=== PATIENT | male | born 1945 | race Two or more races ===

== ENCOUNTER 2019-10-31 18:48 | Inpatient (IN) | payer OTHER ==
[~2019-10-31] VITALS: Ht 172.7 cm; Wt 75.4 kg
[~2019-10-31 18:48] MED LIST: HYDRALAZINE 20MG/ML VIAL IV PRN
[2019-10-31] MEDS ORDERED: ONDANSETRON HCL 4MG/2ML INJ IV STA (19:09)
[2019-10-31] MEDS ORDERED: IPRATROPIUM BROMIDE (0.02%) 0.5MG/2.5ML NEB HHN STA (19:09)
[2019-10-31 19:29] LABS: BASOPHILS % 0.6 % (0.0-2.0); EOSINOPHILS % 3.1 % (0.0-5.0); HEMATOCRIT. 44.2 % (42.0-52.0); HEMOGLOBIN. 14.6 g/dL (14.0-18.0); LYMPHOCYTES % 21.8 % (20.0-50.0); MEAN CORPUSCULAR HEMOGLOBIN 30.7 pg (28.0-32.0); MEAN CORPUSCULAR VOLUME 93.2 fL (80.0-94.0); MEAN PLATELET VOLUME 9.7 fl (7.4-10.4); MONOCYTES % 4.4 % (2.0-8.0); NEUTROPHILS % 70.1 % (40.0-76.0); PLATELET 272 x1000/uL (130-400); RED BLOOD CELL COUNT 4.74 mill/uL (4.7-6.1); RED CELL DISTRIBUTION WIDTH 14.4 % (11.6-14.6)
[2019-10-31 19:35] LABS: CHLORIDE 106 mEq/L (98-107)
[2019-10-31 19:36] LABS: INR 0.9
[2019-10-31 19:45] LABS: ETHANOL BLOOD < 10 mg/dL
[2019-10-31] MEDS ORDERED: LEVOFLOXACIN 750MG PREMIX 150 ML IV ONE (19:45)
[2019-10-31] MEDS ORDERED: SODIUM CHLORIDE 0.9% 1000ML BAG (SEPSIS BOLUS) IV ONE (19:45)
[2019-10-31] MEDS ORDERED: HYDRALAZINE 20MG/ML VIAL IV ONE (19:45)
[2019-10-31 20:56] LABS: CLARITY URINE CLEAR (CLEAR); COLOR URINE YELLOW (YELLOW); KETONES URINE NEGATIVE (NEGATIVE); LEUKOCYTE ESTERASE URINE NEGATIVE (NEGATIVE); NITRITE URINE NEGATIVE (NEGATIVE); OCCULT BLOOD URINE NEGATIVE (NEGATIVE); PROTEIN URINE 3+ (NEGATIVE); SPECIFIC GRAVITY URINE 1.012 (1.005-1.030); UROBILINOGEN URINE 0.2 E.U./dL (0.2-1.0)
[2019-10-31 21:21] LABS: *AMPHETAMINES SCREEN URINE NEGATIVE (NEGATIVE); *BARBITURATES SCREEN URINE NEGATIVE (NEGATIVE); *BENZODIAZEPINES SCREEN URINE NEGATIVE (NEGATIVE); *COCAINE SCREEN URINE NEGATIVE (NEGATIVE); CANNABINOID URINE SCREEN NEGATIVE (NEGATIVE); METHADONE URINE SCREEN NEGATIVE (NEGATIVE); OPIATES URINE SCREEN NEGATIVE (NEGATIVE); PHENCYCLIDINE URINE SCREEN NEGATIVE (NEGATIVE)
[2019-10-31] MEDS ORDERED: HYDRALAZINE 20MG/ML VIAL IV NR (22:00)
[2019-10-31 22:34] LABS: BG BASE EXCESS -1.1 mmol/L (-2.0-2.0); BG BILEVEL POS AIRWAY PRESSURE 14/5; BG CARBOXYHEMOGLOBIN 1.2 % (0.5-1.5); BG FRACTION INSPIRED OXYGEN 50; BG HCO3 ACT 25.1 mmol/L (22.0-26.0); BG METHEMOGLOBIN 0.1 % (0.0-1.5); BG OXYHEMOGLOBIN 96.7 % (94.0-97.0); BG PCO2 47.4 mmHg (35.0-45.0); BG PH 7.341 (7.350-7.450); BG PO2 123.2 mmHg (75.0-100.0); BG SAMPLE SITE RIGHT RADIAL; BG TOTAL HEMOGLOBIN 14.5 g/dL (12.0-18.0); BG VENT MODE MASK - BIPAP; BG VENT RATE 16 set
[2019-10-31 23:30] VITALS: BP 145/77
[2019-11-01] VITALS (12 sets, daily range): BP systolic 116–176; BP diastolic 58–95
[2019-11-01] MEDS ORDERED: HYDROCODONE/ACETAMINOPHEN 5/325MG TABLET PO PRN (01:15)
[2019-11-01] MEDS ORDERED: ACETAMINOPHEN 325MG TABLET PO PRN (01:15)
[2019-11-01] MEDS ORDERED: DEXTROSE 50% WATER 50ML SYRINGE IV PRN (01:45)
[2019-11-01 03:11] LABS: BASOPHILS % 0.2 % (0.0-2.0); EOSINOPHILS % 0.3 % (0.0-5.0); HEMATOCRIT. 38.5 % (42.0-52.0); LYMPHOCYTES % 11.8 % (20.0-50.0); MEAN CORPUSCULAR VOLUME 91.5 fL (80.0-94.0); MEAN PLATELET VOLUME 9.2 fl (7.4-10.4); MONOCYTES % 5.3 % (2.0-8.0); NEUTROPHILS % 82.4 % (40.0-76.0); PLATELET 181 x1000/uL (130-400)
[2019-11-01 03:30] LABS: T4 FREE 0.96 ng/dL (0.76-1.46)
[2019-11-01] MEDS: BLOOD SUGAR DIAGNOSTIC STRIP TEST SCH ×4 (07:30→21:00)
[2019-11-01] MEDS ORDERED: INSULIN LISPRO 100 UNITS/ML SUBCUT SCH (07:30)
[2019-11-01] MEDS: IPRATROPIUM/ALBUTEROL 0.5-3(2.5)MG/3ML NEB HHN SCH ×4 (07:55→20:09)
[2019-11-01] MEDS ORDERED: CLOP75TA33 PO (07:56)
[2019-11-01] MEDS ORDERED: GABA-529 MT (07:56)
[2019-11-01] MEDS ORDERED: LISI-186 MT (08:00)
[2019-11-01] MEDS ORDERED: CARV12.545 MT (08:00)
[2019-11-01] MEDS ORDERED: ATOR-2 MT (08:00)
[2019-11-01] MEDS: INSULIN LISPRO 100 UNITS/ML SUBCUT SCH ×4 (08:00→21:00)
[2019-11-01] MEDS: ENOXAPARIN 40MG/0.4ML SYR SUBCUT SCH (09:00)
[2019-11-01] MEDS: ASPIRIN 81MG TABLET PO SCH (09:32)
[2019-11-01] MEDS: NITROGLYCERIN OINT 1GM/INCH UDPKT TD SCH ×2 (18:23→21:27)
[2019-11-01] MEDS: NICOTINE 21MG PATCH TD SCH (18:23)
[2019-11-01] MEDS: GABAPENTIN 100MG CAPSULE PO SCH (18:24)
[2019-11-01] MEDS: AMLODIPINE 5MG TABLET PO SCH (18:24)
[2019-11-01] MEDS: CARVEDILOL 12.5MG TABLET PO SCH (18:27)
[2019-11-01] MEDS: CLOPIDOGREL 75MG TABLET PO SCH (18:31)
[2019-11-01] MEDS: ATORVASTATIN CALCIUM 40MG TABLET PO SCH (21:27)
[2019-11-01] MEDS ORDERED: SENN-178 MT (21:37)
[2019-11-01] MEDS: SENNOSIDES 8.6MG TABLET PO SCH (21:59)
[2019-11-02] VITALS (13 sets, daily range): BP systolic 93–169; BP diastolic 50–111
[2019-11-02] MEDS: IPRATROPIUM/ALBUTEROL 0.5-3(2.5)MG/3ML NEB HHN SCH ×6 (00:07→21:58)
[2019-11-02] MEDS: NITROGLYCERIN OINT 1GM/INCH UDPKT TD SCH ×3 (06:00→22:00)
[2019-11-02 07:46] LABS: BASOPHILS % 0.6 % (0.0-2.0); EOSINOPHILS % 4.5 % (0.0-5.0); HEMOGLOBIN. 11.8 g/dL (14.0-18.0); LYMPHOCYTES % 24.2 % (20.0-50.0); MEAN CORPUSCULAR HEMOGLOBIN 31.1 pg (28.0-32.0); MEAN CORPUSCULAR VOLUME 92.1 fL (80.0-94.0); MONOCYTES % 8.1 % (2.0-8.0); NEUTROPHILS % 62.6 % (40.0-76.0); PLATELET 166 x1000/uL (130-400); RED CELL DISTRIBUTION WIDTH 14.1 % (11.6-14.6)
[2019-11-02] MEDS: BLOOD SUGAR DIAGNOSTIC STRIP TEST SCH ×4 (07:51→21:00)
[2019-11-02] MEDS: CLOPIDOGREL 75MG TABLET PO SCH (07:54)
[2019-11-02] MEDS: NICOTINE 21MG PATCH TD SCH (07:54)
[2019-11-02] MEDS: ASPIRIN 81MG TABLET PO SCH (07:55)
[2019-11-02] MEDS: GABAPENTIN 100MG CAPSULE PO SCH ×3 (07:55→16:45)
[2019-11-02] MEDS: LISINOPRIL 5MG TABLET PO SCH (07:56)
[2019-11-02] MEDS: AMLODIPINE 5MG TABLET PO SCH (07:56)
[2019-11-02] MEDS: ENOXAPARIN 40MG/0.4ML SYR SUBCUT SCH (07:57)
[2019-11-02] MEDS: CARVEDILOL 12.5MG TABLET PO SCH ×2 (07:57→16:41)
[2019-11-02] MEDS: INSULIN LISPRO 100 UNITS/ML SUBCUT SCH ×4 (08:00→21:00)
[2019-11-02] MEDS: CLONIDINE 0.1MG TABLET PO PRN (17:52)
[2019-11-02] MEDS ORDERED: LEVOFLOXACIN 750MG PREMIX 150 ML IV SCH (20:00)
[2019-11-02] MEDS: METHYLPREDNISOLONE SOD SUCC 40 MG/ML VIAL IV SCH (20:54)
[2019-11-02] MEDS: ATORVASTATIN CALCIUM 40MG TABLET PO SCH (20:55)
[2019-11-02] MEDS: SENNOSIDES 8.6MG TABLET PO SCH (21:00)
[2019-11-02] MEDS ORDERED: SENNOSIDES 8.6MG TABLET PO SCH (21:00)
[2019-11-03] VITALS (13 sets, daily range): BP systolic 114–162; BP diastolic 38–92
[2019-11-03] MEDS: IPRATROPIUM/ALBUTEROL 0.5-3(2.5)MG/3ML NEB HHN SCH ×6 (05:09→21:53)
[2019-11-03 07:05] LABS: BASOPHILS % 0.2 % (0.0-2.0); HEMATOCRIT. 34.5 % (42.0-52.0); LYMPHOCYTES % 11.8 % (20.0-50.0); MEAN CORPUSCULAR HEMOGLOBIN 31.8 pg (28.0-32.0); MEAN CORPUSCULAR VOLUME 91.3 fL (80.0-94.0); MEAN PLATELET VOLUME 10.1 fl (7.4-10.4); PLATELET 173 x1000/uL (130-400); RED BLOOD CELL COUNT 3.78 mill/uL (4.7-6.1)
[2019-11-03] MEDS: INSULIN LISPRO 100 UNITS/ML SUBCUT SCH ×4 (08:00→21:00)
[2019-11-03] MEDS: BLOOD SUGAR DIAGNOSTIC STRIP TEST SCH ×4 (08:05→21:00)
[2019-11-03] MEDS: CARVEDILOL 12.5MG TABLET PO SCH ×2 (08:15→17:31)
[2019-11-03] MEDS: LISINOPRIL 5MG TABLET PO SCH (08:15)
[2019-11-03] MEDS: CLOPIDOGREL 75MG TABLET PO SCH (08:16)
[2019-11-03] MEDS: ASPIRIN 81MG TABLET PO SCH (08:16)
[2019-11-03] MEDS: AMLODIPINE 5MG TABLET PO SCH (08:16)
[2019-11-03] MEDS: GABAPENTIN 100MG CAPSULE PO SCH ×3 (08:16→17:31)
[2019-11-03] MEDS: NICOTINE 21MG PATCH TD SCH (08:17)
[2019-11-03] MEDS: ENOXAPARIN 40MG/0.4ML SYR SUBCUT SCH (08:17)
[2019-11-03 09:39] LABS: BG BASE EXCESS -2.5 mmol/L (-2.0-2.0); BG CARBOXYHEMOGLOBIN 0.2 % (0.5-1.5); BG DEOXYHEMOGLOBIN 9.2 % (0.0-5.0); BG FRACTION INSPIRED OXYGEN 21; BG HCO3 ACT 21.6 mmol/L (22.0-26.0); BG METHEMOGLOBIN 0.3 % (0.0-1.5); BG OXYGEN SATURATION 90.8 % (92.0-98.5); BG OXYHEMOGLOBIN 90.3 % (94.0-97.0); BG PCO2 35.3 mmHg (35.0-45.0); BG PH 7.405 (7.350-7.450); BG PO2 59.4 mmHg (75.0-100.0); BG SAMPLE SITE RIGHT BRACHIAL; BG TOTAL HEMOGLOBIN 12.2 g/dL (12.0-18.0); BG VENT MODE ROOM AIR
[2019-11-03] MEDS: METHYLPREDNISOLONE SOD SUCC 40 MG/ML VIAL IV SCH ×2 (13:07→23:25)
[2019-11-03] MEDS: NITROGLYCERIN OINT 1GM/INCH UDPKT TD SCH ×2 (13:15→23:26)
[2019-11-03] MEDS ORDERED: SENNOSIDES/DOCUSATE SOD 8.6/50MG TABLET PO PRN (19:00)
[2019-11-03] MEDS: SENNOSIDES 8.6MG TABLET PO SCH (21:00)
[2019-11-03] MEDS: ATORVASTATIN CALCIUM 40MG TABLET PO SCH (23:26)
[2019-11-04] VITALS (14 sets, daily range): BP systolic 128–162; BP diastolic 58–95
[2019-11-04] MEDS: IPRATROPIUM/ALBUTEROL 0.5-3(2.5)MG/3ML NEB HHN SCH ×5 (00:32→16:51)
[2019-11-04] MEDS: METHYLPREDNISOLONE SOD SUCC 40 MG/ML VIAL IV SCH ×2 (04:34→11:34)
[2019-11-04] MEDS: NITROGLYCERIN OINT 1GM/INCH UDPKT TD SCH ×2 (06:18→13:44)
[2019-11-04] MEDS: BLOOD SUGAR DIAGNOSTIC STRIP TEST SCH ×3 (06:31→16:58)
[2019-11-04] MEDS: INSULIN LISPRO 100 UNITS/ML SUBCUT SCH ×3 (06:33→17:01)
[2019-11-04 07:00] LABS: BASOPHILS % 0.1 % (0.0-2.0); HEMOGLOBIN. 12.2 g/dL (14.0-18.0); MEAN CORPUSCULAR HEMOGLOBIN 30.9 pg (28.0-32.0); MEAN CORPUSCULAR VOLUME 91.5 fL (80.0-94.0); MEAN PLATELET VOLUME 9.9 fl (7.4-10.4); MONOCYTES % 2.4 % (2.0-8.0); NEUTROPHILS % 89.5 % (40.0-76.0); PLATELET 193 x1000/uL (130-400); RED BLOOD CELL COUNT 3.93 mill/uL (4.7-6.1)
[2019-11-04 08:07] LABS: PHOSPHORUS 3.6 mg/dL (2.5-4.9)
[2019-11-04] MEDS: NICOTINE 21MG PATCH TD SCH (08:56)
[2019-11-04] MEDS: CLOPIDOGREL 75MG TABLET PO SCH (08:56)
[2019-11-04] MEDS: AMLODIPINE 5MG TABLET PO SCH (08:57)
[2019-11-04] MEDS: LISINOPRIL 5MG TABLET PO SCH (08:57)
[2019-11-04] MEDS: GABAPENTIN 100MG CAPSULE PO SCH ×3 (08:57→16:58)
[2019-11-04] MEDS: CARVEDILOL 12.5MG TABLET PO SCH ×2 (08:57→16:59)
[2019-11-04] MEDS: ASPIRIN 81MG TABLET PO SCH (08:57)
[2019-11-04] MEDS: ENOXAPARIN 40MG/0.4ML SYR SUBCUT SCH (08:59)
[2019-11-04] MEDS ORDERED: LEVOFLOXACIN 500MG TABLET PO SCH (11:00)
[2019-11-04] MEDS ORDERED: CLONIDINE 0.1MG TABLET PO SCH (11:00)
[2019-11-04] MEDS ORDERED: LISINOPRIL 5MG TABLET PO SCH (11:00)
[2019-11-04] MEDS ORDERED: P20 PO (12:36)
[2019-11-04] MEDS ORDERED: IPRA3AMP9 NEB (12:36)
[2019-11-04] MEDS ORDERED: AMLO5TAB4 MT (12:36)
[2019-11-04] MEDS ORDERED: LEVO500T2 PO (12:36)
[2019-11-04] MEDS ORDERED: FLUT1AER INH (12:36)
[2019-11-04] MEDS ORDERED: NICO-645 TP (12:36)
[2019-11-04] MEDS ORDERED: ASPI-1497 MT (12:36)
[2019-11-04] MEDS: CLONIDINE 0.1MG TABLET PO PRN (18:44)
== END 2019-11-04 21:25 | disposition home health service (06) | DRG 871 ==
LOC: ER 18:48 → ENRESERV 21:43 → 5EST 22:40
PROVIDERS: ADMIT Internal Medicine; ATTEND Internal Medicine
PROC: 5A09357 Assistance with Respiratory Ventilation, Less than 24 Consecutive Hours, Continuous Positive Airway Pressure (ICD-10-PCS; principal; 2019-10-31)
PROC: 5A09357 Assistance with Respiratory Ventilation, Less than 24 Consecutive Hours, Continuous Positive Airway Pressure (ICD-10-PCS; 2019-11-01)
DX: A41.9 Sepsis, unspecified organism (principal); I21.4 Non-ST elevation (NSTEMI) myocardial infarction; J18.9 Pneumonia, unspecified organism; I50.33 Acute on chronic diastolic (congestive) heart failure; I13.0 Hypertensive heart and chronic kidney disease with heart failure and stage 1 through stage 4 chronic kidney disease, or unspecified chronic kidney disease; J44.1 Chronic obstructive pulmonary disease with (acute) exacerbation; J44.0 Chronic obstructive pulmonary disease with (acute) lower respiratory infection; E78.5 Hyperlipidemia, unspecified; N18.9 Chronic kidney disease, unspecified; I25.10 Atherosclerotic heart disease of native coronary artery without angina pectoris; D64.9 Anemia, unspecified; E11.22 Type 2 diabetes mellitus with diabetic chronic kidney disease; E11.40 Type 2 diabetes mellitus with diabetic neuropathy, unspecified; E11.51 Type 2 diabetes mellitus with diabetic peripheral angiopathy without gangrene; F17.210 Nicotine dependence, cigarettes, uncomplicated; I49.3 Ventricular premature depolarization; Z79.02 Long term (current) use of antithrombotics/antiplatelets; Z82.49 Family history of ischemic heart disease and other diseases of the circulatory system; Z95.5 Presence of coronary angioplasty implant and graft; Z79.899 Other long term (current) drug therapy
CPT/HCPCS: 36415; 36600; 71045; 80048; 80053; 80061; 80305; 80320; 81003; 82375; 82805; 82962; 83036; 83605; 83735; 83880; 84100; 84145; 84439; 84443; 84484; 85025; 87804; 93005; 93306; 94618; 94640; 94660; 99291; J0360; J1650; J1815; J1956; J2405; J2920; J7030; G0480

== ENCOUNTER 2025-02-15 16:12 | Emergency (ER) | payer OTHER ==
[~2025-02-15] VITALS: Ht 162.6 cm; Wt 71.0 kg
[~2025-02-15 16:12] MED LIST changes: +AMLO5TAB5 MT; +ASPI-1497 MT; +ATOR-2 MT; +CARV12.545 MT; +CLOP75TA33 PO; +FLUT1AER INH; +GABA-529 MT; -HYDRALAZINE 20MG/ML VIAL IV PRN; +IPRA3AMP9 NEB; +LEVO500T2 PO; +LISI-186 MT; +NICO-645 TP; +P20 PO; +SENN-371 MT
[2025-02-15 17:02] LABS: HEMATOCRIT. 34.6 % (42.0-52.0); HEMOGLOBIN. 11.5 g/dL (14.0-18.0); MEAN CORPUSCULAR HEMOGLOBIN 30.6 pg (28.0-32.0); MEAN CORPUSCULAR HGB CONC 33.2 g/dL (31.0-37.0); MEAN CORPUSCULAR VOLUME 92.1 fL (80.0-94.0); MEAN PLATELET VOLUME 9.8 fl (7.4-10.4); PLATELET 185 x1000/uL (130-400); RED BLOOD CELL COUNT 3.76 mill/uL (4.7-6.1); RED CELL DISTRIBUTION WIDTH 14.9 % (11.6-14.6); WHITE BLOOD COUNT 6.4 x1000/uL (4.5-11.0)
[2025-02-15 17:03] LABS: CHLORIDE 102 mEq/L (98-107); POTASSIUM 3.9 mEq/L (3.5-5.1); SODIUM 139 mEq/L (136-145)
[2025-02-15 17:04] LABS: CALCIUM 9.7 mg/dL (8.7-10.4); CARBON DIOXIDE 28 mEq/L (21-32)
[2025-02-15 17:06] LABS: DIFFERENTIAL COMMENT 1
[2025-02-15 17:09] LABS: CREATININE 2.1 mg/dL (0.6-1.3); GLUCOSE 125 mg/dL (70-105); TROPONIN I HIGH SENSITIVITY 29 ng/L (3.0-53); UREA NITROGEN BLOOD 19 mg/dL (9-23)
[2025-02-15 17:59] LABS: PLATELET ESTIMATE NORMAL
[2025-02-15 18:00] LABS: ANISOCYTOSIS 1+
[2025-02-15] MEDS: LISINOPRIL 10MG TABLET PO ONE (23:33)
[2025-02-15] MEDS: CARVEDILOL 12.5MG TABLET PO ONE (23:33)
[2025-02-15 23:35] VITALS: BP 175/62; PULSE 63; RESP 29; TEMP 37; O2SAT 100
== END 2025-02-16 00:05 | disposition short-term general hospital (02) ==
LOC: ER 16:12 → EDBEDREQ 16:46 → ER 02-16 00:05
DX: R55 Syncope and collapse (principal); I16.0 Hypertensive urgency; I11.0 Hypertensive heart disease with heart failure; I50.9 Heart failure, unspecified; E11.40 Type 2 diabetes mellitus with diabetic neuropathy, unspecified; E78.5 Hyperlipidemia, unspecified; I25.10 Atherosclerotic heart disease of native coronary artery without angina pectoris; J44.9 Chronic obstructive pulmonary disease, unspecified; Z79.02 Long term (current) use of antithrombotics/antiplatelets; Z79.51 Long term (current) use of inhaled steroids; Z79.52 Long term (current) use of systemic steroids; Z79.82 Long term (current) use of aspirin; Z79.899 Other long term (current) drug therapy; Z87.891 Personal history of nicotine dependence; Z95.5 Presence of coronary angioplasty implant and graft
CPT/HCPCS: 36415; 71045; 80048; 83880; 84484; 85025; 93005; 99285; A4606